=== PATIENT | female | born 1980 | race Two or more races ===

== ENCOUNTER 2022-06-23 11:34 | Emergency (ER) | payer MEDICAID, OTHER ==
[~2022-06-23] VITALS: Ht 167.6 cm; Wt 75.9 kg
[2022-06-23] MEDS ORDERED: IBUP600T28 PO (20:15)
[2022-06-23 20:25] VITALS: BP 124/88
[2022-06-23] MEDS: KETOROLAC TROMETH 30 MG/ML 1ML VIAL IM ONE ×2 (20:26→20:31)
[2022-06-23 20:28] LABS: Urine Bacteria FEW /hpf (None Seen); Urine Blood Negative /uL (Negative); Urine Specific Gravity 1.023 (1.001-1.035); Urine WBC 2 /hpf (0 - 5)
== END 2022-06-23 20:32 | disposition home or self-care (01) ==
LOC: ER 11:34
DX: S63.502A Unspecified sprain of left wrist, initial encounter (principal); S53.402A Unspecified sprain of left elbow, initial encounter; X50.1XXA Overexertion from prolonged static or awkward postures, initial encounter; Y93.89 Activity, other specified; Y92.89 Other specified places as the place of occurrence of the external cause; Y99.8 Other external cause status
CPT/HCPCS: 73080; 73110; 81001; 99284; J1885